=== PATIENT | male | born 1990 | race African-American/Black ===

== ENCOUNTER → 2020-01-14 | Outpatient (CLI) | payer OTHER ==
--- NOTE | 2020-01-14 12:05 | Diagnostic Imaging Report ---
Right upper quadrant abdominal ultrasound Clinical History: Dyspepsia Discussion: Sonographic evaluation of the right upper quadrant of the abdomen is performed. The liver has normal size and measures 13.3 cm in length. The liver echotexture is normal, without focal mass. There is no intra or extrahepatic biliary dilatation. The common bile duct measures 2 mm. The gallbladder has normal appearance, without wall thickening, stones, or pericholecystic fluid. The main portal vein diameter is normal, measuring 8 mm. The pancreatic head, body, and proximal tail demonstrate no abnormality. There is no ascites. The right kidney measures 11.3 cm in length and is normal in size. There is no renal mass, hydronephrosis, or shadowing renal calculus. Segments of the inferior vena cava and aorta visualized demonstrate no abnormality. Impression: Normal right upper quadrant abdominal ultrasound. Signed by: Dr. Garrett Christine MD on 01/14/2020 12:03 PM
== END ==
LOC: US 09:37
PROVIDERS: ATTEND Emergency Medicine
DX: K30 Functional dyspepsia (principal)
CPT/HCPCS: 76705

== ENCOUNTER → 2020-08-03 | Outpatient (CLI) | payer OTHER ==
--- NOTE | 2020-08-03 18:04 | Diagnostic Imaging Report ---
EXAM: Right Upper Quadrant Ultrasound with Doppler INDICATION: ABDOMINAL PAIN COMPARISON: Abdominal ultrasound on 01/14/2020 TECHNIQUE: Transverse and longitudinal images of the right upper abdomen were obtained. Grayscale, color Doppler and spectral waveform analysis of the hepatic vasculature and splenic vein were performed. FINDINGS: Liver: Size: 13.8 cm in the right midclavicular line, normal Appearance: Normal echogenicity, smooth contour Mass: No focal masses Gallbladder: Stones/Sludge: None Wall: 0.2 cm Appearance: No pericholecystic fluid or hydrops. Sonographic Johnson's Sign: Negative Bile Ducts: Intrahepatic Ducts: No dilatation Extrahepatic Ducts: Common bile duct measures 0.3 cm, no dilatation Pancreas: Visualized portions of the pancreatic head, neck and proximal body are normal. Right Kidney: Size: 9.7 x 3.5 x 5.3 cm Echogenicity: Normal Parenchymal thickness: Normal Collecting system: No hydronephrosis Stones: None Cyst/Mass: None Vessels: Main Portal Vein: Diameter: 0.8 cm, normal. Normal flow direction. Aorta: Visualized portions has normal caliber measuring 1.4 cm at its midpoint. Inferior Vena Cava: Visualized portions are normal Free Fluid: No ascites or pleural effusion IMPRESSION: Normal right upper quadrant ultrasound with normal Doppler exam. Signed by: Antolin Hamilton MD on 08/03/2020 6:01 PM
== END ==
LOC: US 16:04
PROVIDERS: ATTEND Emergency Medicine
DX: R10.9 Unspecified abdominal pain (principal)
CPT/HCPCS: 76705